=== PATIENT | female | born 1980 | race Hispanic/Latino ===

== ENCOUNTER 2020-05-27 17:08 | Emergency (ER) | payer SELFPAY ==
--- NOTE | 2020-05-27 19:46 | ER ---
Nurse's Notes [facility] Name: Ny Avery Age: 40 yrs Sex: Female : 1980 Arrival Date: 05/27/2020 Time: 17:11 Bed Waiting Private MD: Diagnosis: Presentation: 05/27 17:47 Chief complaint: Patient states: SOB, cough, R CP, fever, no appetite, body aches for 5 ll1 days. Fever 101 at home earlier this week, fever better now. Coronavirus screen: Client denies travel out of the [place] in the last 14 days. chills, congestion, cough unrelated to allergies, diarrhea, difficulty breathing, fatigue, fever, headache, muscle pain, shaking with chills, shortness of breath, loss of taste or smell, Client presents with at least one sign or symptom that may indicate coronavirus-19. Standard/surgical mask placed on the client. Ebola Screen: Patient denies travel to an Ebola-affected area in the 21 days before illness onset. Initial Sepsis Screen: Does the patient meet any 2 criteria? HR > 90 bpm. No. Patient's initial sepsis screen is negative. Does the patient have a suspected source of infection? Yes: Productive cough/pneumonia. Risk Assessment: Do you want to hurt yourself or someone else? Patient reports no desire to harm self or others. Onset of symptoms was May 22, 2020. 17:47 Method Of Arrival: Ambulatory ll1 17:47 Acuity: BARBER 3 ll1 Historical: - Allergies: 17:47 No Known Allergies; ll1 - PMHx: 17:47 None; ll1 - PSHx: 17:47 None; ll1 - Immunization history:: Flu vaccine is up to date. - Social history:: Smoking status: Patient/guardian denies using tobacco, Stopped _ months ago 1.5. Vital Signs: 17:47 BP 154 / 111; Pulse 100; Resp 18; Temp 98.1; Pulse Ox 98% on R/A; Weight 172.37 kg; ll1 Height 5 ft. 5 in. (165.10 cm); Pain 5/10; 17:47 Body Mass Index 63.23 (172.37 kg, 165.10 cm) ll1 ED Course: 17:11 Patient arrived in ED. rg4 17:46 Arm band placed on. ll1 17:49 Triage completed. 1 19:14 Chinedu Andersen, RN is Primary Nurse. jb4 19:15 Bunny Ricardo MD is Attending Physician. [facility] 19:19 Patient's name was called from ER lobby. No response. 1 19:20 Not in lobby or restroom when called back to ER room for eval. 1 19:45 No tin lobby or restroom when called back to ER room for physician eval. [facility] Administered Medications: No medications were administered Outcome: 19:45 Patient left the ED. 1 Signatures: Kristyn Hardy rg4 Chinedu Andersen, RN RN jb4 Paco Arevalo RN RN 1 Bunny Ricardo MD MD [facility] Corrections: (The following items were deleted from the chart) 19:45 19:20 No t in lobby or restroom when called back to ER room for eval. [place] [id number]
[2020-05-27 19:49] VITALS: BP 154/111; TEMP 98.1; O2SAT 98
== END 2020-05-27 19:45 | disposition left against medical advice (07) ==
LOC: ER 17:08
DX: Z53.21 Procedure and treatment not carried out due to patient leaving prior to being seen by health care provider (principal)
CPT/HCPCS: 99281